=== PATIENT | male | born 1980 | race Caucasian/White ===

== ENCOUNTER 2018-08-12 12:00 | Emergency (ER) | payer MEDICAID ==
[~2018-08-12] VITALS: Ht 177.8 cm; Wt 80.7 kg
[2018-08-12 12:05] VITALS: BP 153/89
--- NOTE | 2018-08-12 12:10 | NUR ---
Patient ambulated to bed 3. RN evaluating patient at bedside.
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
--- NOTE | 2018-08-12 12:19 | NUR ---
DR AL AT BEDSIDE
--- NOTE | 2018-08-12 12:23 | NUR ---
ASSISTED DR AL IN REMOVING FOREIGN OBJECT
[2018-08-12 12:31] VITALS: BP 149/87
--- NOTE | 2018-08-12 12:31 | NUR ---
Patient discharged with v/s stable. Written and verbal after care instructions given and explained. Patient verbalized understanding. Ambulatory with steady gait. All questions addressed prior to discharge. Advised to follow up with PMD.
== END 2018-08-12 12:31 | disposition home or self-care (01) ==
LOC: MED 12:00
DX: T16.2XXA Foreign body in left ear, initial encounter (principal); Z88.6 Allergy status to analgesic agent; X58.XXXA Exposure to other specified factors, initial encounter; Y93.89 Activity, other specified; Y92.89 Other specified places as the place of occurrence of the external cause; Y99.8 Other external cause status
CPT/HCPCS: 69200; 99284

== ENCOUNTER 2018-11-07 00:45 | Emergency (ER) | payer MEDICAID, OTHER ==
[~2018-11-07] VITALS: Ht 177.8 cm; Wt 80.7 kg
[2018-11-07 01:01] VITALS: BP 139/89
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
--- NOTE | 2018-11-07 01:05 | NUR ---
PT TAKEN TO BED 8
--- NOTE | 2018-11-07 01:18 | NUR ---
DR DAUGHERTY AT BEDSIDE FOR MSE
--- NOTE | 2018-11-07 01:26 | NUR ---
X-Ray at bedside.
--- NOTE | 2018-11-07 01:33 | NUR ---
LAC REPAIRED USING DERMABOND BY DR DAUGHERTY. LIDOCAINE NOT ADMINISTERED BY DR DAUGHERTY.
--- NOTE | 2018-11-07 01:33 | NUR ---
DR DAUGHERTY AT BEDSIDE FOR LAC REPAIR
[2018-11-07] MEDS ORDERED: SULFAMETH/TRIMETH DS 800/160MG 1 TAB PO ONE (01:35)
--- NOTE | 2018-11-07 01:39 | NUR ---
PTS WOUND COVERED WITH A NON ADHESIVE GAUZE AND WRAPPED WITH AN GEO BANDAGE
[2018-11-07] MEDS: LIDOCAINE 1% 500 MG/50 ML VIAL INJ SCH ×2 (01:50→01:51)
[2018-11-07 02:04] VITALS: BP 131/102
== END 2018-11-07 02:04 | disposition home or self-care (01) ==
LOC: MED 00:45
DX: S86.021A Laceration of right Achilles tendon, initial encounter (principal); Z79.82 Long term (current) use of aspirin; V23.9XXA Unspecified motorcycle rider injured in collision with car, pick-up truck or van in traffic accident, initial encounter; Y93.55 Activity, bike riding; Y92.480 Sidewalk as the place of occurrence of the external cause; Y99.8 Other external cause status
CPT/HCPCS: 12002; 73610; 99284; Q0092

== ENCOUNTER 2019-07-01 00:07 | Emergency (ER) | payer SELFPAY ==
[~2019-07-01] VITALS: Ht 180.3 cm; Wt 79.4 kg
[2019-07-01 00:10] VITALS: BP 142/90
--- NOTE | 2019-07-01 00:10 | NUR ---
TO BED # 07 AMBULATORY
[2019-07-01] MEDS ORDERED: VANCOMYCIN 1,000 MG in DEXTROSE 5% 250 ML IV ONE (00:50)
[2019-07-01] MEDS ORDERED: VANCOMYCIN 1,000 MG VIAL ONE ×2 (01:13→01:19)
--- NOTE | 2019-07-01 02:00 | NUR ---
39 YO MALE CO RIGHT FOOT PAIN THAT HAS STARTED WITHIN THE LAST 2D. PT STATES THAT HE HAS BEEN WALKING MORE AND HAS GOTTEN BLISTERS. THERE ARE 2 BLISTERS ON THEM PAD OF HIS FOOT. PT STATES THAT THE PAIN IS 2/10 AT THIS TIME. NO MED HX.
[2019-07-01 05:03] VITALS: BP 142/90
--- NOTE | 2019-07-01 05:03 | NUR ---
IV removed, catheter intact and site benign. Applied folded 4x4 gauze and tape to stop bleeding.
--- NOTE | 2019-07-04 10:16 | NUR ---
Late entry. Confirmed with RN that Vancomycin completed at 0310
== END 2019-07-01 05:03 | disposition home or self-care (01) ==
LOC: MED 00:07
DX: L03.116 Cellulitis of left lower limb (principal); F17.210 Nicotine dependence, cigarettes, uncomplicated; F12.90 Cannabis use, unspecified, uncomplicated; Z88.6 Allergy status to analgesic agent; Z71.6 Tobacco abuse counseling
CPT/HCPCS: 36415; 87040; 96365; 99284; J3370

== ENCOUNTER 2020-04-07 10:13 | Emergency (ER) | payer SELFPAY ==
[~2020-04-07] VITALS: Ht 182.9 cm; Wt 81.6 kg
[2020-04-07 11:00] VITALS: BP 159/103
[2020-04-07] MEDS ORDERED: KETOROLAC 30 MG/ML VIAL IM ONE (11:05)
[2020-04-07] MEDS ORDERED: IBUPROFEN 800 MG TAB PO ONE (11:15)
[2020-04-07 11:50] VITALS: BP 159/103
== END 2020-04-07 11:51 | disposition home or self-care (01) ==
LOC: MED 10:13
DX: J40 Bronchitis, not specified as acute or chronic (principal); Z20.828 Contact with and (suspected) exposure to other viral communicable diseases; F17.200 Nicotine dependence, unspecified, uncomplicated; Z71.6 Tobacco abuse counseling; Z88.6 Allergy status to analgesic agent
CPT/HCPCS: 99283; U0003